=== PATIENT | male | born 1990 | race Caucasian/White ===

== ENCOUNTER 2018-11-11 00:15 | Emergency (ER) | payer SELFPAY ==
[2018-11-11 00:47] LABS: Hematocrit 45 % (42-52); Hemoglobin 15.3 g/dL (14.0-18.0); Mean Corpuscular HGB Conc 35 g/dL (31-36); Mean Corpuscular Hemoglobin 32 pg (27-31); Mean Corpuscular Volume 93 fL (80-94); Mean Platelet Volume 7.2 fL (7.4-10.4); Platelet Count 224 10^3/uL (150-450); Red Cell Distribution Width 14 % (10-15); White Blood Count 7.8 10^3/uL (3.5-10.8)
[2018-11-11 01:05] LABS: AST 190 U/L (13-39); Albumin 3.9 g/dL (3.2-5.2); Albumin/Globulin Ratio 1.3 (1-3); Alkaline Phosphatase 83 U/L (34-104); Anion Gap 6 mmol/L (2-11); BUN/Creatinine Ratio 11.8 (8-20); Blood Urea Nitrogen 8 mg/dL (6-24); CO2 Carbon Dioxide 27 mmol/L (22-32); Chloride 108 mmol/L (101-111); EGFR African American 170.6 (>60); Glucose 105 mg/dL (70-100); Potassium 3.7 mmol/L (3.5-5.0); Sodium 141 mmol/L (135-145); Total Protein 6.9 g/dL (6.4-8.9)
[2018-11-11 01:26] LABS: Acetaminophen < 15 mcg/mL; Alcohol < 10 mg/dL (<10); Salicylate < 2.50 mg/dL (<30)
[2018-11-11 01:42] LABS: TSH (Thyroid Stimulating Horm) 0.19 mcIU/mL (0.34-5.60)
[2018-11-11 01:54] LABS: ABS Eosinophils 0.3 10^3/ul (0-0.6); ABS Monocytes 0.5 10^3/ul (0-0.8); Eosinophil % 3.4 %; Lymphocyte % 38.2 %; Nucleated Red Blood Cells % 0.1
[2018-11-11 02:06] LABS: ALT 566 U/L (7-52)
--- NOTE | 2018-11-11 02:14 | ED ---
Medical Screening - HPI Summary HPI Summary: Patient transferred from [place] for mental health evaluation. Kicked out of his hotel. No place to stay. States person he went to for help dropped him off at the ED in [place].. Says he is at risk of losing his job due to ADHD and has no medicines to help manage his ADHD. Also complains of hep C with no medicines to manage. No PCP. Denies SI, HI. Denies any symptoms of illness, pain or injury. Denies EtOH or recreational drug use today. - History of Current Complaint Chief Complaint: EDPsychosocial Stated Complaint: MHE PER EMS Time Seen by Provider: 11/11/18 00:34 Onset/Duration: Started Hours Ago Severity: moderate PMH/Surg Hx/FS Hx/Imm Hx Endocrine/Hematology History: Denies: Hx Anticoagulant Therapy Cardiovascular History: Denies: Hx Pacemaker/ICD History: Denies: Hx Dialysis Sensory History: Denies: Hx Legally Blind Opthamlomology History: Denies: Hx Eye Prosthesis EENT History: Denies: Hx Deafness Neurological History: Denies: Hx Dementia Psychiatric History: Reports: Hx Attention Deficit Hyperactivity Disorder Denies: Hx Eating Disorder, Hx of Violent Episodes Against Others Infectious Disease History: No Infectious Disease History: Denies: Traveled Outside the [place] in Last 30 Days - Family History Known Family History: Positive: None - Social History Alcohol Use: Occasionally Hx Substance Use: Yes Hx Tobacco Use: Yes Review of Systems Constitutional: Negative Eyes: Negative ENT: Negative Cardiovascular: Negative Respiratory: Negative Gastrointestinal: Negative Genitourinary: Negative Musculoskeletal: Negative Skin: Negative Neurological: Negative Psychological: Normal All Other Systems Reviewed And Are Negative: Yes Physical Exam - Summary Physical Exam Summary: Alert and oriented. Calm and cooperative. Triage Information Reviewed: Yes Vital Signs On Initial Exam: Initial Vitals Temp Pulse Resp BP Pulse Ox 97.9 F 98 17 93/48 98 11/11/18 01:00 11/11/18 01:00 11/11/18 01:00 11/11/18 01:00 11/11/18 01:00 Vital Signs Reviewed: Yes Appearance: Positive: Well-Appearing Skin: Positive: Warm Head/Face: Positive: Normal Head/Face Inspection Eyes: Positive: Normal Neck: Positive: Supple Respiratory/Lung Sounds: Positive: Clear to Auscultation Cardiovascular: Positive: Normal Abdomen Description: Positive: Nontender Musculoskeletal: Positive: Normal Neurological: Positive: Normal Psychiatric: Positive: Normal AVPU Assessment: Alert - [place] Coma Scale Best Eye Response: 4 - Spontaneous Best Motor Response: 6 - Obeys Commands Best Verbal Response: 5 - Oriented Coma Scale Total: 15 Diagnostics - Vital Signs Vital Signs Temp Pulse Resp BP Pulse Ox 11/11/18 01:00 97.9 F 98 17 93/48 98 - Laboratory Lab Results: Lab Results 11/11/18 11/11/18 Range/Units 00:41 00:41 WBC 7.8 (3.5-10.8) 10^3/uL RBC 4.80 (4.18-5.48) 10^6 /uL Hgb 15.3 (14.0-18.0) g/dL Hct 45 (42-52) % MCV 93 (80-94) fL MCH 32 H (27-31) pg MCHC 35 (31-36) g/dL RDW 14 (10-15) % Plt Count 224 (150-450) 10^3/uL MPV 7.2 L (7.4-10.4) fL Neut % (Auto) 51.2 % Lymph % (Auto) 38.2 % Dawson % (Auto) 6.8 % Eos % (Auto) 3.4 % Baso % (Auto) 0.4 % Absolute Neuts (auto) 4.0 (1.5-7.7) 10^3/ul Absolute Lymphs (auto) 3.0 (1.0-4.8) 10^3/ul Absolute Monos (auto) 0.5 (0-0.8) 10^3/ul Absolute Eos (auto) 0.3 (0-0.6) 10^3/ul Absolute Basos (auto) 0.0 (0-0.2) 10^3/ul Absolute Nucleated RBC 0.0 10^3/ul Nucleated RBC % 0.1 Sodium 141 (135-145) mmol/L Potassium 3.7 (3.5-5.0) mmol/L Chloride 108 (101-111) mmol/L Carbon Dioxide 27 (22-32) mmol/L Anion Gap 6 (2-11) mmol/L BUN 8 (6-24) mg/dL Creatinine 0.68 (0.67-1.17) mg/dL Est GFR ( Amer) 170.6 (>60) Est GFR (Non-Af Amer) 141.0 (>60) BUN/Creatinine Ratio 11.8 (8-20) Glucose 105 H (70-100) mg/dL Calcium 9.0 (8.6-10.3) mg/dL Total Bilirubin 1.10 H (0.2-1.0) mg/dL AST 190 H (13-39) U/L ALT 566 H (7-52) U/L Alkaline Phosphatase 83 (34-104) U/L Total Protein 6.9 (6.4-8.9) g/dL Albumin 3.9 (3.2-5.2) g/dL Globulin 3.0 (2-4) g/dL Albumin/Globulin Ratio 1.3 (1-3) TSH 0.19 L (0.34-5.60) mcIU/mL Salicylates < 2.50 (<30) mg/dL Acetaminophen < 15 mcg/mL Serum Alcohol < 10 (<10) mg/dL Result Diagrams: 11/11/18 00:41 11/11/18 00:41 Lab Statement: Any lab studies that have been ordered have been reviewed, and results considered in the medical decision making process. Course/Dx - Course Course Of Treatment: Patient transferred from [place] for mental health evaluation. Kicked out of his hotel. No place to stay. States person he went to for help dropped him off at the ED in [place].. Says he is at risk of losing his job due to ADHD and has no medicines to help manage his ADHD. Also complains of hep C with no medicines to manage. No PCP. Denies SI, HI. Denies any symptoms of illness, pain or injury. Denies EtOH or recreational drug use today. Physical exam:Alert and oriented. Calm and cooperative. Vital signs within normal limits. Elevated liver enzymes. TSH 0.19. Labs otherwise unremarkable. Per mental health evaluation patient is discharged. - Diagnoses Provider Diagnoses: Elevated liver enzymes, Alcohol abuse Discharge - Sign-Out/Discharge Documenting (check all that apply): Patient Departure Patient Received Moderate/Deep Sedation with Procedure: No - Discharge Plan Condition: Stable Disposition: HOME Patient Education Materials: Generalized Anxiety Disorder (ED), Alcohol Intoxication (ED) Additional Instructions: Per completion of a mental health evaluation, you are cleared for release and do not require inpatient psychiatric hospitalization at this time. Please go to nearest emergency room or call 911 if safety concerns arise or condition worsens. Please contact: [facility] [address], [address] [place] [address] for outpatient appointment Important Phone Numbers: [facility] [phone] Suicide Prevention and Crisis Services........................ [phone] National Suicide Prevention Lifeline............................ 800-919-EJVA (9490) [facility]....................... [phone] Alcoholics Anonymous............................................... [facility].............. [phone] [facility] Police.............................................. Substance Abuse Treatment Programs: [facility] [place] [facility] - Billing Disposition and Condition Condition: STABLE Disposition: Home
[2018-11-11 06:43] VITALS: BP 114/67
== END 2018-11-11 06:41 | disposition home or self-care (01) ==
LOC: EDSEX → ED 00:15
DX: F10.10 Alcohol abuse, uncomplicated (principal); R74.8 Abnormal levels of other serum enzymes
CPT/HCPCS: 36415; 80053; 80320; 80329; 84443; 85025; 99285; G0480

== ENCOUNTER 2019-01-13 17:09 | Emergency (ER) | payer OTHER ==
[2019-01-13] MEDS ORDERED: LORazepam INJ* 2 MG/ML 1 ML VIAL ONE (17:18)
[2019-01-13] MEDS ORDERED: Haloperidol INJ IV/IM* 5 MG/ML AMP ONE (17:20)
[2019-01-13] MEDS ORDERED: diPHENhydraMINE IV* 50 MG/ML 1 ml VIAL (BENADRYL) ONE (17:20)
--- NOTE | 2019-01-13 17:36 | ED ---
Substance Abuse/Use - HPI Summary HPI Summary: LEVEL 5 CAVEAT - History Of Current Complaint Chief Complaint: EDOverdose Stated Complaint: 2208 PER POLICE Hx Obtained From: Other: - Police - Allergies/Home Medications Allergies/Adverse Reactions: Allergies Allergy/AdvReac Type Severity Reaction Status Date / Time No Known Drug Allergies Allergy Unknown Verified 11/11/18 01:14 Reaction Details PMH/Surg Hx/FS Hx/Imm Hx Previously Healthy: No - LEVEL 5 CAVEAT Endocrine/Hematology History: Denies: Hx Anticoagulant Therapy Cardiovascular History: Denies: Hx Pacemaker/ICD History: Denies: Hx Dialysis Sensory History: Denies: Hx Eye Prosthesis, Hx Legally Blind, Hx Deafness Opthamlomology History: Denies: Hx Eye Prosthesis, Hx Legally Blind Neurological History: Denies: Hx Dementia Psychiatric History: Reports: Hx Attention Deficit Hyperactivity Disorder Denies: Hx Eating Disorder, Hx of Violent Episodes Against Others - Surgical History Surgical History: Unable to Obtain/Confirm - LEVEL 5 CAVEAT Infectious Disease History: No Infectious Disease History: Denies: Traveled Outside the [place] in Last 30 Days - Family History Known Family History: Positive: Unknown - LEVEL 5 CAVEAT - Social History Alcohol Use: Occasionally Hx Substance Use: Yes Substance Use Type: Reports: Marijuana Hx Tobacco Use: Yes Smoking Status (MU): Light Every Day Tobacco Smoker - Additional Comments History Additional Comments: LEVEL 5 CAVEAT Review of Systems All Other Systems Reviewed And Are Negative: No - Comments Additional Review of Systems Comments: LEVEL 5 CAVEAT Physical Exam - Summary Physical Exam Summary: LEVEL 5 CAVEAT Triage Information Reviewed: Yes Vital Signs On Initial Exam: Initial Vitals Temp Pulse Resp BP Pulse Ox 98.3 F 104 20 151/71 97 01/13/19 17:10 01/13/19 17:10 01/13/19 17:10 01/13/19 17:10 01/13/19 17:10 Vital Signs Reviewed: Yes Diagnostics - Vital Signs Vital Signs Temp Pulse Resp BP Pulse Ox 01/13/19 17:10 98.3 F 104 20 151/71 97 - Laboratory Lab Statement: Any lab studies that have been ordered have been reviewed, and results considered in the medical decision making process. Discharge ED - Discharge Plan Referrals: No Primary Care Phys,NOPCP [Primary Care Provider] - - Attestation Statements Document Initiated by Scribe: Yes
--- NOTE | 2019-01-13 17:42 | ED ---
Substance Abuse/Use - HPI Summary HPI Summary: LEVEL 5 CAVEAT This patient is a 28 year old M presenting to [facility] with a chief complaint of drinking alcohol. Per triage, Pt arrived in handcuffs with veda Daniel, pt admits to drinking alcohol and doing heroine". - History Of Current Complaint Chief Complaint: EDOverdose Stated Complaint: 2208 PER POLICE Hx Obtained From: Other: - police Onset/Duration of Drug/ETOH Abuse: Hours Ingestion History: Type/Name Of Drug - Heroin Overdose Characteristics: Oral Timing Of Abuse: Binge Use Character: Manic, Angry Associated Signs And Symptoms: Hostile Related Hx: Homicidal: Thoughts, Suicidal: Thoughts - Allergies/Home Medications Allergies/Adverse Reactions: Allergies Allergy/AdvReac Type Severity Reaction Status Date / Time No Known Drug Allergies Allergy Unknown Verified 11/11/18 01:14 Reaction Details PMH/Surg Hx/FS Hx/Imm Hx Previously Healthy: No - LEVEL 5 CAVEAT Endocrine/Hematology History: Denies: Hx Anticoagulant Therapy Cardiovascular History: Denies: Hx Pacemaker/ICD History: Denies: Hx Dialysis Sensory History: Denies: Hx Eye Prosthesis, Hx Legally Blind Opthamlomology History: Denies: Hx Eye Prosthesis, Hx Legally Blind Neurological History: Denies: Hx Dementia Psychiatric History: Reports: Hx Attention Deficit Hyperactivity Disorder Denies: Hx Eating Disorder, Hx of Violent Episodes Against Others Infectious Disease History: No Infectious Disease History: Denies: Traveled Outside the [place] in Last 30 Days - Family History Known Family History: Positive: Unknown - LEVEL 5 CAVEAT - Social History Alcohol Use: Daily Alcohol Amount: 12+ a day Hx Substance Use: Yes Substance Use Type: Reports: Marijuana Hx Tobacco Use: Yes Smoking Status (MU): Heavy Every Day Tobacco Smoker - Additional Comments History Additional Comments: LEVEL 5 CAVEAT Review of Systems Positive: Other - pos - hostile All Other Systems Reviewed And Are Negative: No - Comments Additional Review of Systems Comments: LEVEL 5 CAVEAT Physical Exam - Summary Physical Exam Summary: LEVEL 5 CAVEAT Appearance: The patient is well-nourished in no acute distress and in no acute pain. Skin: The skin is warm and dry, and skin color reflects adequate perfusion. HEENT: The head is normocephalic and atraumatic. The pupils are equal and reactive. The conjunctivae are clear and without drainage. Nares are patent and without drainage. Mouth reveals moist mucous membranes, and the throat is without erythema and exudate. The external ears are intact. The ear canals are patent and without drainage. The tympanic membranes are intact. Neck: The neck is supple with full range of motion and non-tender. There are no carotid bruits. There is no neck vein distension. Respiratory: Chest is non-tender. Lungs are clear to auscultation and breath sounds are symmetrical and equal. Cardiovascular: Heart is regular rate and rhythm. There is no murmur or rub auscultated. There is no peripheral edema and pulses are symmetrical and equal. Abdomen: The abdomen is soft and non-tender. There are normal bowel sounds heard in all four quadrants and there is no organomegaly palpated. Musculoskeletal: There is no back tenderness noted. Extremities are non-tender with full range of motion. There is good capillary refill. There is no peripheral edema or calf tenderness elicited. Neurological: Patient is alert and oriented to person, place and time. The patient has symmetrical motor strength in all four extremities. Cranial nerves are grossly intact. Deep tendon reflexes are symmetrical and equal in all four extremities. Psychiatric: The patient has an appropriate affect and does not exhibit any anxiety or depression. Triage Information Reviewed: Yes Vital Signs On Initial Exam: Initial Vitals Temp Pulse Resp BP Pulse Ox 98.3 F 104 20 151/71 97 01/13/19 17:10 01/13/19 17:10 01/13/19 17:10 01/13/19 17:10 01/13/19 17:10 Vital Signs Reviewed: Yes Diagnostics - Vital Signs Vital Signs Temp Pulse Resp BP Pulse Ox 01/13/19 17:10 98.3 F 104 20 151/71 97 - Laboratory Lab Statement: Any lab studies that have been ordered have been reviewed, and results considered in the medical decision making process. Course/Dx - Course Course Of Treatment: The patient was clearly angry with great potential for violence on arrival. He was temporarily physically restrained and given a B-52 for his and our safety. He has been resting quietly subsequently and will be turned over to Dr. Kennedy. - Diagnoses Provider Diagnoses: Alcohol intoxication Discharge ED - Sign-Out/Discharge Documenting (check all that apply): Sign-Out Patient Signing out patient TO: Tanvir Topete - at change of shift at 1900 on 01/13/19 pending sobreity Receiving patient FROM: Tanvir Santana Patient Received Moderate/Deep Sedation with Procedure: No - Discharge Plan Condition: Good Disposition: HOME Patient Education Materials: Polysubstance Abuse (ED) Referrals: [facility] [Outside] [facility] [Outside] - Billing Disposition and Condition Condition: GOOD Disposition: Home - Attestation Statements Document Initiated by Scribe: Yes Documenting Scribe: Magaly Salazar Provider For Whom Scribe is Documenting (Include Credential): Tanvir Santana MD Scribe Attestation: Magaly Marley scribed for Tanvir Santana MD on 01/14/19 at 0804. Scribe Documentation Reviewed: Yes Provider Attestation: The documentation as recorded by the Magaly martinez accurately reflects the service I personally performed and the decisions made by Tanvir gresham MD Status of Scribe Document: Viewed
--- NOTE | 2019-01-13 23:21 | ED ---
Progress - Progress Note Progress Note: Receiving sign-out from Dr. Santana at shift change 0700 pending sobriety. The patient has remained stable, became sober and ready to go home. A plan for discharge was discussed with the patient and he was agreeable with this plan. Course/Dx - Course Course Of Treatment: Receiving sign-out from Dr. Santana at shift change 0700 pending sobriety. The patient has remained stable, became sober and ready to go home. A plan for discharge was discussed with the patient and he was agreeable with this plan. - Diagnoses Provider Diagnoses: Alcohol intoxication Discharge ED - Sign-Out/Discharge Documenting (check all that apply): Patient Departure - Discharge Receiving patient FROM: Tanvir Santana Patient Received Moderate/Deep Sedation with Procedure: No - Discharge Plan Condition: Good Disposition: HOME Patient Education Materials: Polysubstance Abuse (ED) Referrals: [facility] [Outside] [facility] [Outside] - Billing Disposition and Condition Condition: GOOD Disposition: Home - Attestation Statements Document Initiated by Bishnu: Yes Documenting Scribe: Jake Graves Provider For Whom Bishnu is Documenting (Include Credential): Tanvir Topete MD Scribe Attestation: Jake Marley scribed for Tanvir Topete MD on 01/14/19 at 1908. Scribe Documentation Reviewed: Yes Provider Attestation: The documentation as recorded by the Jake martinez accurately reflects the service I personally performed and the decisions made by me, Tanvir Topete MD Status of Scribe Document: Viewed
[2019-01-13 23:36] VITALS: BP 125/64
== END 2019-01-13 23:36 | disposition home or self-care (01) ==
LOC: ED 17:09
DX: F10.129 Alcohol abuse with intoxication, unspecified (principal); F11.90 Opioid use, unspecified, uncomplicated; F17.200 Nicotine dependence, unspecified, uncomplicated
CPT/HCPCS: 99285; J1200; J1630; J2060